=== PATIENT | female | born 1950 | race Caucasian/White ===

== ENCOUNTER 2019-05-19 07:57 | Day surgery (SDC) | payer MEDICARE, OTHER ==
[2019-05-19] MEDS ORDERED: Sodium Chloride 0.9% 10 ML Syringe FLUSH PRN (08:00)
[2019-05-19] MEDS ORDERED: Sodium Chloride 0.9% 1,000 ML IV SCH (08:00)
[2019-05-19] MEDS ORDERED: Midazolam 1 MG/ML 2 ML SDV ONE (08:55)
[2019-05-19] MEDS ORDERED: Propofol 200 MG/20 ML SDV ONE (08:56)
--- NOTE | 2019-05-19 09:51 | PCM.PRNOTE ---
- Free Text/Narrative Note: PROCEDURE PERFORMED: Colonoscopy PRE-PROCEDURE DIAGNOSIS/INDICATION FOR PROCEDURE: Hx tubular adenomas in 2007, last colonoscopy in 2011, with recommended follow- up colonoscopy in 5 years CONSENT: Informed consent was obtained prior to the procedure after discussion of the risks (including pain, bleeding, infection, perforation, missed polyps, inability to completely remove polyps or complete procedure necessitating repeat colonoscopy, adverse reaction to anesthesia, cardiovascular event), benefits and alternatives and expected outcomes. The patient expressed understanding and wished to proceed. Verbal consent given and consent form signed. PROCEDURAL PAUSE: Completed SEDATION: Per anesthesia DESCRIPTION OF PROCEDURE: Patient was placed in the left lateral decubitus position. After adequate sedation and anesthetic was administered, a rectal exam was performed revealing external hemorrhoids. A lubricated Olympus Video Colonoscope was inserted into the rectum and air insufflation was performed. The colonoscope was advanced through the rectum, sigmoid, descending, transverse, and ascending colon without difficulties. The cecum was reached and the ileocecal valve as well as the appendiceal orifice were identified and pictorially documented. After adequate visualization of the cecum, the scope was withdrawn, giving 360-degree views of the colonic mucosa and retroflexion was performed in the rectum with the following findings noted: Ileocecal valve: Normal Cecum: Normal Ascending colon: Scattered small diverticuli Hepatic flexure: Normal Transverse colon: Normal Splenic flexure: Normal Descending colon: Moderate small to medium mouth diverticuli Sigmoid colon: Moderate small to medium mouth diverticuli Rectum: Normal The scope was straightened, air suction performed, and the scope withdrawn without complication. Hull bowel score = 8. IMPRESSION: Colonoscopy performed revealing diverticulosis and external hemorrhoids. PLAN: Next screening colonoscopy recommended in 10 years given the lack of tubular adenoma noted on either of the prior two colonoscopies and last polyps removed in 2007. Encourage increased fiber diet and bowel regimen to ensure 1-2 soft bowel movements per day.
== END 2019-05-19 11:15 | disposition home or self-care (01) ==
LOC: KA.SDS 07:57
PROVIDERS: ATTEND Family Medicine
DX: Z12.11 Encounter for screening for malignant neoplasm of colon (principal); K57.30 Diverticulosis of large intestine without perforation or abscess without bleeding; K64.4 Residual hemorrhoidal skin tags; I10 Essential (primary) hypertension; E78.5 Hyperlipidemia, unspecified; E11.9 Type 2 diabetes mellitus without complications; C50.411 Malignant neoplasm of upper-outer quadrant of right female breast; C50.912 Malignant neoplasm of unspecified site of left female breast; M15.9 Polyosteoarthritis, unspecified; E66.9 Obesity, unspecified; Z68.32 Body mass index [BMI] 32.0-32.9, adult; Z86.010 Personal history of colon polyps; Z87.891 Personal history of nicotine dependence; Z79.82 Long term (current) use of aspirin; Z79.84 Long term (current) use of oral hypoglycemic drugs; Z79.899 Other long term (current) drug therapy; Z88.8 Allergy status to other drugs, medicaments and biological substances; Z17.0 Estrogen receptor positive status [ER+]; Z90.13 Acquired absence of bilateral breasts and nipples; Z92.21 Personal history of antineoplastic chemotherapy
CPT/HCPCS: 00812; 82962; J2250; J2704; J7030